=== PATIENT | female | born 2000 | race Caucasian/White ===

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

== ENCOUNTER → 2021-12-04 | Outpatient (CLI) | payer BC, OTHER ==
[2021-12-04 23:19] LABS: % Iron Saturation 24.7 (12.00-45.00); Ferritin 22.6 ng/mL (10.0-291.0); Magnesium 2.2 mg/dL (1.5-2.4); Phosphorus 3.6 mg/dL (2.4-5.1)
[2021-12-06 08:45] LABS: Cotinine 343.9 ng/mL (<2.0); Nicotine 20.4 ng/mL (<2.0)
== END | disposition home or self-care (01) ==
LOC: LABWHC1 15:10
PROVIDERS: ATTEND Nurse Practitioner Family
DX: Z13.89 Encounter for screening for other disorder (principal); R53.83 Other fatigue; R42 Dizziness and giddiness
CPT/HCPCS: 36415; 80323; 82306; 82607; 82728; 82746; 83540; 83550; 83735; 84100; 86376; 86800